=== PATIENT | female | born 1980 | race Hispanic/Latino ===

== ENCOUNTER 2022-10-24 20:56 | Emergency (ER) | payer BC, SELFPAY ==
[2022-10-24] MEDS ORDERED: hydrALAZINE 20 MG/ML VIAL ONE (23:29)
[2022-10-25] MEDS ORDERED: hydrALAZINE 20 MG/ML VIAL ONE (00:17)
[2022-10-25 00:20] LABS: Anion Gap 16 mmol/L (10-20); BUN (Urea Nitrogen) 17 mg/dL (7.0-18.7); Calc. Creatinine Clearance 0 mL/min (70-130); Calcium 8.9 mg/dL (7.8-10.44); Carbon Dioxide 23 mmol/L (22-29); Chloride 107 mmol/L (98-107); Estimated GFR 111; Glucose 111 mg/dL (70-105); Potassium 3.6 mmol/L (3.5-5.1); Sodium 142 mmol/L (136-145)
== END 2022-10-25 01:00 | disposition home or self-care (01) ==
LOC: CSHERS 20:56
DX: I10 Essential (primary) hypertension (principal)
CPT/HCPCS: 80048; 96374; 96376; J0360